=== PATIENT | female | born 1955 | race Caucasian/White ===

== ENCOUNTER 2023-12-27 09:15 | Day surgery (SDC) | payer MEDICARE ==
[~2023-12-27] VITALS: Ht 160 cm; Wt 79.5 kg
[~2023-12-27 09:15] MED LIST: FERR-119 PO; MAGN400C PO; PANT40TA54 PO
[2023-12-27 09:45] VITALS: BP 173/85; PULSE 54; RESP 13
[2023-12-27] MEDS ORDERED: fentaNYL/PF 50MCG/1 ML 2ML syringe ONE (10:56)
[2023-12-27] MEDS ORDERED: midazolam 1 mg/ML 2ml injection ONE (10:56)
[2023-12-27] MEDS ORDERED: simethicone 40mg/0.6ml oral drops 30ml ONE (10:57)
[2023-12-27] MEDS ORDERED: propofol inj 20 ML IV ONE (10:59)
[2023-12-27 11:26] VITALS: BP 115/82; PULSE 61; RESP 21; O2SAT 98
[2023-12-27 11:36] VITALS: BP 135/80; PULSE 59; RESP 16; O2SAT 98
[2023-12-27 11:46] VITALS: BP 143/85; PULSE 57; RESP 19; O2SAT 97
[2023-12-27 11:57] VITALS: BP 157/84; PULSE 61; RESP 19; O2SAT 97
== END 2023-12-27 12:15 | disposition home or self-care (01) ==
LOC: PAS 09:15
PROVIDERS: ATTEND Internal Medicine Gastroenterology
DX: K92.1 Melena (principal); K44.9 Diaphragmatic hernia without obstruction or gangrene; K29.70 Gastritis, unspecified, without bleeding; E66.9 Obesity, unspecified; Z68.31 Body mass index [BMI] 31.0-31.9, adult; Z88.6 Allergy status to analgesic agent
CPT/HCPCS: 43239; A4620; J2250; J2704; J3010; J7030; Z7512; 88305; 88342